=== PATIENT | female | born 1950 | race Caucasian/White ===

== ENCOUNTER 2018-12-07 11:03 | Emergency (ER) | payer MEDICARE ==
[2018-12-07] MEDS ORDERED: Heparin Sodium 5,000 Units/ML Vial IVPUSH ONE (12:09)
--- NOTE | 2018-12-07 12:13 | EDM.PDOC ---
ED HPI GENERAL MEDICAL PROBLEM - General Chief Complaint: Lower Extremity Injury/Pain Stated Complaint: transfer to higher level of care Time Seen by Provider: 12/07/18 12:00 Source of Information: Reports: Patient, Old Records, RN History Limitations: Reports: No Limitations - History of Present Illness INITIAL COMMENTS - FREE TEXT/NARRATIVE: 67 yr female presents with numbness and coolness to left lower extremity. Hx of acute left lower extremity ischemia and thrombosed femoral below knee and previous popliteal bypass 02/02/2018 in [place]. History dates back to 12-23-17 with angiography complicated by iliofemoral dissection. Last thrombolysis performed 10/02/2018 in [place]. She does continue to smoke and does continue with Coumadin and statin. She is trying to quit smoking and is interested in trying Chantix for this. - Related Data Allergies Allergy/AdvReac Type Severity Reaction Status Date / Time Penicillins Allergy Nausea Verified 07/11/18 12:06 Home Meds: Home Meds Aspirin 81 mg PO DAILY 07/11/18 [History] Review of Systems - Review of Systems Review Of Systems: See Below Constitutional: Reports: No Symptoms Eyes: Reports: No Symptoms Ears: Reports: No Symptoms Nose: Reports: No Symptoms Mouth/Throat: Reports: No Symptoms Respiratory: Reports: No Symptoms Cardiovascular: Reports: Other (cold foot and numbness.). Denies: Chest Pain, Edema GI/Abdominal: Reports: No Symptoms Genitourinary: Reports: No Symptoms Musculoskeletal: Reports: Other (numbness to left leg and coolness to foot and lower leg) Skin: Reports: No Symptoms Neurological: Denies: Dizziness, Headache, Difficulty Walking, Change in Speech Psychiatric: Reports: No Symptoms ED EXAM, GENERAL - Physical Exam Exam: See Below Exam Limited By: No Limitations General Appearance: Alert, No Apparent Distress Ears: Hearing Grossly Normal Nose: Normal Inspection Throat/Mouth: Normal Inspection, Normal Voice, No Airway Compromise Head: Atraumatic, Normocephalic Neck: Normal Inspection, Supple, Non-Tender Respiratory/Chest: No Respiratory Distress, Lungs Clear, Normal Breath Sounds Cardiovascular: No Edema, Other (left foot is cool to touch. U/S of left lower extremity with no DVT) GI/Abdominal: Soft, Non-Tender Extremities: Normal Range of Motion, Non-Tender, No Pedal Edema, Other (left foot is cool to touch). No: Pallor, Redness Neurological: Alert, Oriented, Normal Cognition Psychiatric: Normal Affect, Normal Mood Skin Exam: Warm, Dry, Normal Color Course - Vital Signs Last Recorded V/S: Last Vital Signs Temp 98.4 F 12/07/18 11:46 Pulse 74 12/07/18 11:46 Resp 16 12/07/18 11:46 BP 125/96 H 12/07/18 11:46 Pulse Ox 100 12/07/18 11:46 - Orders/Labs/Meds Meds: Medications Discontinued Medications Generic Name Dose Route Start Last Admin Trade Name Sacha PRN Reason Stop Dose Admin Heparin Sodium (Porcine) 4,000 units 12/07/18 12:09 12/07/18 12:10 Heparin Sodium IVPUSH 12/07/18 12:10 4,000 units .BOLUS ONE Administration Heparin Sodium/Dextrose 25,000 units in 500 mls @ 18.452 mls/hr 12/07/18 12: 15 Heparin 25,000 Units In D5w 500 Ml IV TITRATE CECELIA Protocol 18 UNITS/KG/HR - Re-Assessments/Exams Free Text/Narrative Re-Assessment/Exam: 12/07/18 12:17 Contact [place], [place] and decline acceptance of pt as pt had this previous thrombosis to the left femoral below knee popliteal area. She had thrombolysis performed 10-02-2018 in [place], [place]. Contacted [facility], Dr Bobby, ER is accepting of pt. Pt is moving this leg and foot freely. She started noticing some coolness to the extremity a few days ago and now numbness to the foot last night. She is alert and talkative. She does smoke and is trying to quit. She had been using the nicotine patch and is interested in starting Chantix. She hasn't been in to the clinic to this provider until today. She has been working and feeling well. Heparin bolus 4000 IV given and heparin qtt of 18 un/kg/hr started. Departure - Departure Time of Disposition: 12:30 Disposition: DC/Tfer to Acute Hospital 02 Condition: Serious Clinical Impression: Vascular abnormality - Discharge Information *PRESCRIPTION DRUG MONITORING PROGRAM REVIEWED*: Not Applicable *COPY OF PRESCRIPTION DRUG MONITORING REPORT IN PATIENT CORRY: Not Applicable Referrals: PCP,None [Primary Care Provider] - Forms: ED Department Discharge - Assessment/Plan Plan: Will transfer pt by air ambulance to [place], [place]. Reoccurrent vascular abnormality/ischemia of left lower extremity and possible reocclusion. Unable to transfer by road ambulance as no [facility] staff available for the transfer. Pt is stable, IV with Heparin qtt is started after 4,000 unit bolus. Pt is alert and no acute distress.
[2018-12-07] MEDS ORDERED: Heparin Sodium/D5W 25,000 UNITS/500 ML BAG IV SCH (12:15)
== END 2018-12-07 12:30 ==
LOC: LB.ED 11:03
DX: I87.9 Disorder of vein, unspecified (principal); Z88.0 Allergy status to penicillin; Z79.82 Long term (current) use of aspirin; F17.200 Nicotine dependence, unspecified, uncomplicated
CPT/HCPCS: 99284; J1644

== ENCOUNTER 2022-12-23 13:49 | Emergency (ER) | payer MEDICARE ==
[2022-12-23] MEDS ORDERED: Ketorolac 30 MG/ML SDV IVPUSH ONE (14:18)
[2022-12-23 14:29] LABS: BASOPHILS ABSOLUTE AUTO 0.07 K/uL (0.02-0.10); BASOPHILS PERCENT AUTO 0.9 % (0.0-0.5); EOSINOPHILS ABSOLUTE AUTO 0.22 K/uL (0.04-0.40); EOSINOPHILS PERCENT AUTO 2.8 % (1.0-5.0); HEMATOCRIT 36.7 % (37.0-47.0); HEMOGLOBIN 12.8 g/dL (11.5-16.5); LYMPHOCYTES ABSOLUTE AUTO 1.48 K/uL (1.50-4.00); LYMPHOCYTES PERCENT AUTO 19.1 % (20.0-40.0); MEAN CORPUSCULAR HEMOGLOBIN 32.2 pg (27.0-32.0); MEAN CORPUSCULAR HGB CONC 34.9 g/dL (31.0-35.0); MEAN CORPUSCULAR VOLUME 92 fL (76-96); MEAN PLATELET VOLUME 9.5 fL (6.0-10.0); MONOCYTES ABSOLUTE AUTO 0.68 K/uL (0.20-0.80); MONOCYTES PERCENT AUTO 8.8 % (3.0-10.0); NEUTROPHILS ABSOLUTE AUTO 5.28 K/uL (2.00-7.50); NEUTROPHILS PERCENT AUTO 68.4 % (45.0-70.0); PLATELET COUNT,PLT 300 K/uL (150-500); RED BLOOD CELL COUNT 3.97 M/uL (3.80-5.80); RED CELL DISTRIBUTION WIDTH 13.2 % (11.0-16.0); WHITE BLOOD CELL COUNT,WBC 7.7 K/uL (4.0-11.0)
[2022-12-23] MEDS ORDERED: HYDROmorphone 2 MG/ML Syringe IVPUSH ONE (14:43)
[2022-12-23 14:48] LABS: A/G RATIO 1.4 (0.8-2.0); ALBUMIN 4.2 g/dL (3.4-5.0); ANION GAP 14.1 mmol/L (5.0-15.0); BILIRUBIN TOTAL 0.3 mg/dL (0.0-1.0); BUN/CREATININE RATIO 18.3 (6-25); CALCIUM 9.3 mg/dL (8.5-10.1); CARBON DIOXIDE,CO2 25.1 mmol/L (21.0-32.0); CREATININE 1.15 mg/dL (0.55-1.02); EST CRCL DRUG DOSING (CG) 32.13 mL/min; POTASSIUM,K 4.2 mmol/L (3.5-5.1); PROTEIN TOTAL,TP 7.2 g/dL (6.4-8.2)
[2022-12-23] MEDS ORDERED: Acetaminophen/HYDROcodone 325-5 MG Tab ONE (15:30)
== END 2022-12-23 15:40 | disposition home or self-care (01) ==
LOC: SUPCPDRO 13:49 → LB.ED 13:49
DX: R07.89 Other chest pain (principal); Z88.0 Allergy status to penicillin; Z79.82 Long term (current) use of aspirin
CPT/HCPCS: 36415; 71250; 80053; 85025; 96374; 96375; 99285; A9270; J1170; J1885